=== PATIENT | female | born 1960 | race Caucasian/White ===

== ENCOUNTER → 2019-04-12 | Outpatient (CLI) | payer BC ==
[~2019-04-12] VITALS: Ht 177.8 cm; Wt 111.4 kg
[~2019-04-12] MED LIST: LIDOCAINE 1% INJ 20 ML 20 ML VIAL INJ ONE
--- NOTE | 2019-04-12 15:18 | Diagnostic Imaging Report ---
INDICATION: Left breast calcifications. PROCEDURE: The patient presents for stereotactic biopsy. CORRELATION is made with prior mammogram from 02/21/2019. The patient was brought to the stereotactic suite, placed in a chair in the sitting upright position. The left breast was positioned lateral medial. Calcifications in the upper outer aspect of the left breast were stereotactically targeted. The lateral left breast was then prepped and draped in usual sterile fashion. A small amount of 1% lidocaine was utilized for local anesthesia. An 8-gauge needle was advanced from a lateral medial approach into the left breast and placed per stereotactic coordinates. A total of 4 core biopsies were obtained with the vacuum-assisted device. Specimen radiograph was obtained demonstrating numerous calcifications within samples labeled #2, 4 and 5. A localizer clip was then deployed. Needle was removed and hemostasis was obtained using manual compression. A follow-up 2D CC and lateral medial mammography demonstrates the marker clip in place. Numerous calcifications have been removed. The patient tolerated the procedure well and left the department in stable condition. All images were viewed on a dedicated workstation. IMPRESSION: Successful stereotactic biopsy of calcifications in the upper outer left breast. Pathology results are currently pending. Dictated by: Dictated on workstation # [id number]
== END ==
LOC: EDBD 09:31 → RAD 09:31
DX: R92.8 Other abnormal and inconclusive findings on diagnostic imaging of breast (principal)
CPT/HCPCS: 19081